=== PATIENT | female | born 1965 | race Caucasian/White ===

== ENCOUNTER → 2019-07-30 14:26 | Outpatient (CLI) | payer OTHER, SELFPAY ==
--- NOTE | 2019-07-30 14:33 | BI_ITS ---
MAMMOGRAPHY - BILATERAL SCREENING REASON FOR EXAM: Female, 54 years old. Routine annual screening examination. PERTINENT HISTORY: Mother with breast cancer. Aunt with breast cancer. History of bilateral breast reduction surgery. TECHNIQUE: Digital bilateral breast angelic (3D mammographic acquisition) in the CC and MLO projections. 2-D mediolateral oblique (MLO) and craniocaudad (CC) views of both breasts were obtained. CAD: Full Field Digital Mammography with Computer Added Detection was performed. COMPARISON: Comparison is made with prior examination dated December 22, 2016. FINDINGS: Breast Composition: There are scattered areas of fibroglandular density. There are no dominant masses or suspicious calcifications. No other significant abnormalities are identified. There has been no significant change since the prior study. BI/SCREEN MAMM (CAD) W/ANGELIC BILAT IMPRESSION: Stable bilateral screening mammogram. Yearly follow-up mammogram recommended. (A) ASSESSMENT CATEGORY: BIRADS Category 1: Negative. A letter regarding these results will be sent to the patient by the facility within 30 days. Approximately 10% of breast cancers are not detected by mammography. A normal mammogram should not delay biopsy of a clinically suspicious abnormality. [id number] Electronically Signed: Neo Harley, at 15:51 EST , Service support ,
== END ==
PROVIDERS: PCP Family Medicine; Referring Provider Registered Nurse; Visit Provider Registered Nurse
DX: Z12.31 Encounter for screening mammogram for malignant neoplasm of breast (principal); Z80.3 Family history of malignant neoplasm of breast
CPT/HCPCS: 77063; 77067

== ENCOUNTER → 2020-10-28 11:17 | Outpatient (CLI) | payer OTHER, SELFPAY ==
--- NOTE | 2020-10-28 11:22 | BI_ITS ---
MAMMOGRAPHY - BILATERAL SCREENING REASON FOR EXAM: Female, 55 years old. Routine annual screening examination. PERTINENT HISTORY: Mother with breast cancer. Aunt with breast cancer. Patient is status post bilateral breast reduction surgery. TECHNIQUE: Digital bilateral breast angelic (3D mammographic acquisition) in the CC and MLO projections. 2-D mediolateral oblique (MLO) and craniocaudad (CC) views of both breasts were obtained. CAD: Full Field Digital Mammography with Computer Added Detection was performed. COMPARISON: Comparison is made with prior study dated 07/30/2019. FINDINGS: Breast Composition: There are scattered areas of fibroglandular density. There are no dominant masses or suspicious calcifications. Stable benign appearing bilateral axillary lymph nodes. No other significant abnormalities are identified. There has been no significant change since the prior study. BI/SCRN MAMM (CAD)W/ANGELIC BILAT IMPRESSION: Stable bilateral screening mammogram. Yearly follow-up mammogram recommended. (A) ASSESSMENT CATEGORY: BIRADS Category 2: Benign. A letter regarding these results will be sent to the patient by the facility within 30 days. Approximately 10% of breast cancers are not detected by mammography. A normal mammogram should not delay biopsy of a clinically suspicious abnormality. [id number] Electronically Signed: Neo Harley MD at 12:40 EDT , Service support ,
== END ==
PROVIDERS: PCP Family Medicine; Referring Provider Registered Nurse; Visit Provider Registered Nurse
DX: Z12.31 Encounter for screening mammogram for malignant neoplasm of breast (principal); Z80.3 Family history of malignant neoplasm of breast
CPT/HCPCS: 77063; 77067

== ENCOUNTER 2022-02-02 12:29 | Emergency (ER) | payer OTHER, SELFPAY ==
[2022-02-02 12:30] VITALS: BP 132/109; PULSE 72; RESP 17; TEMP 36.1; O2SAT 99; BMI 41.0
--- NOTE | 2022-02-02 13:31 | EDS_ITS ---
HPI History of Present Illness Chief Complaint: Nosebleed Onset/Context/Timing Onset: Weeks (2) Context: Sudden Onset Timing: Waxes and wanes Quality: Bleeding Location: Right nares Worsened by: Nothing Relieved by: Nothing Narrative Narrative: Patient presents with epistaxis that has been intermittent for the past 2 weeks. Patient states that it mainly bleeds from the right nares. Patient denies any trauma or injury. Patient states she has been seen for this at [facility] and had it cauterized there. Patient states it has recurred since that time. Patient states she has an appoint with Dr. Nelson in 2 days. Patient does not take any anticoagulants or antiplatelet medications. [facility] Medical History (Updated 02/02/22 @ 15:[address] Gus Berkowitz DO) Depression Hypercholesterolemia Home Medications escitalopram oxalate 10 mg tablet 15 mg PO DAILY DEPRESSION 08/22/16 [History Last Taken Unknown] lansoprazole 30 mg capsule,delayed release (Prevacid) 30 mg PO DAILY GERD 08/22/16 [History Last Taken Unknown] oxycodone-acetaminophen 7.5 mg-325 mg tablet 1 ea PO 4X/DAY PRN PRN Pain ##30 08/22/16 [Rx Last Taken Unknown] Allergy/AdvReac Type Severity Reaction Status Date / Time moxifloxacin [From Avelox] Allergy Hives Verified 02/02/22 12:29 Penicillins Allergy Hives Verified 02/02/22 12:29 Sulfa (Sulfonamide Allergy Hives Verified 02/02/22 12:29 Antibiotics) Surgical History History of hysterectomy Hx of bilateral breast reduction surgery Social History Smoking Status: Never smoker ROS ROS ED Constitutional Constitutional ED: Denies chills or fever(s) Eyes Eyes: Reports blurry vision; Denies diplopia ENT ENT ED: Denies rhinorrhea or sore throat Cardiovascular Cardiovascular: Denies chest pain or palpitations Respiratory/Chest Respiratory/Chest: Denies cough or dyspnea Gastrointestinal Gastrointestinal: Denies nausea or vomiting Genitourinary Genitourinary ED: Denies dysuria or hematuria Musculoskeletal Musculoskeletal: Denies back pain or neck pain Integumentary Denies abscess or rash Neurologic Neurologic: Reports headache(s); Denies weakness Allergic/Immunologic Allergic/Immunologic ED: Denies mouth swelling or urticaria EXAM Physical Exam Const Vital Signs: 02/02/22 12:30 02/02/22 14:31 Temperature 96.9 F L Temperature Source Temporal Pulse Rate 72 59 L Respiratory Rate 17 16 Blood Pressure 132/109 H 146/98 H Blood Pressure Mean 116 114 Pulse Ox 99 Oxygen Delivery Method Room Air Room Air Positive well nourished, well developed and obese General Appearance ED: well developed and NAD Nutritional Appearance: obese HEENT Reports moist mucous membranes HEENT Narrative: There is some packing noted in the right nares. There is no active bleeding noted. There is no septal deviation or septal hematoma noted. Eyes PERRL and EOMs intact bilaterally Neck supple and no JVD Neuro oriented x3, CN's II-XII intact bilaterally and no sensory deficits noted Sensorium / Orientation: alert Motor Exam: strength 5/5 throughout Psych mental status grossly normal MDM MDM MDM Narrative Medical decision making narrative: Omar solution was soaked on a cottonball. These were placed in the right nares. There is no further bleeding. A small anterior Merisel sponge was applied to the right nares. Patient tolerated this well. Patient was instructed to keep this packing in place until she is able to follow-up with Dr. Nelson in 2 days. Patient understood and was agreeable with the plan. All questions were answered. Discharge Plan Triage Chief Complaint: Nosebleed ED Provider: Gus Berkowitz Dx/Rx/DC Orders Clinical Impression: Anterior epistaxis Instructions: ED Epistaxis (Adult) Prescriptions: No Action escitalopram oxalate 10 MG tablet 15 mg PO DAILY lansoprazole [Prevacid] 30 MG capsule 30 mg PO DAILY oxycodone-acetaminophen 1 EACH tablet 1 ea PO 4X/DAY PRN PRN (Reason: Pain) Qty: 30 0RF Primary Care Provider: Antonio Brock Referrals: Antonio Brock MD [Primary Care Provider] - Dom Nelson MD [Med Staff - Active Staff] - 2 Days Disposition Disposition: Home, Self Care
[2022-02-02] MEDS: Mixture 30 ML Bottle TOPICAL (14:07)
[2022-02-02 14:31] VITALS: BP 146/98; PULSE 59; RESP 16
[2022-02-02 15:29] VITALS: PULSE 66; RESP 17
== END 2022-02-02 15:30 | disposition home or self-care (01) ==
PROVIDERS: Emergency Provider Emergency Medicine; PCP Family Medicine; Visit Provider Emergency Medicine
DX: R04.0 Epistaxis (principal); Z68.41 Body mass index [BMI] 40.0-44.9, adult; E66.9 Obesity, unspecified
CPT/HCPCS: 30901; 99283